=== PATIENT | male | born 2000 | race Caucasian/White ===

== ENCOUNTER 2024-04-01 08:22 | Outpatient (CLI) | payer BC, SELFPAY ==
[~2024-04-01] VITALS: Ht 185.4 cm; Wt 63.6 kg
[2024-04-01 08:45] VITALS: BP 119/57; O2SAT 99
[2024-04-01] MEDS: VEDOLIZUMAB 300 MG in NS 250 ML IV ONE (09:15)
[2024-04-01 09:53] VITALS: BP 115/58; O2SAT 100
== END 2024-04-01 09:54 ==
LOC: M INFU 08:22
PROVIDERS: ATTEND Nurse Practitioner Family
DX: K51.90 Ulcerative colitis, unspecified, without complications (principal); Z88.2 Allergy status to sulfonamides
CPT/HCPCS: 96413; J3380